=== PATIENT | female | born 1995 | race Caucasian/White ===

== ENCOUNTER 2016-08-25 23:15 | Emergency (ER) | payer SELFPAY ==
[~2016-08-25] VITALS: Ht 160 cm; Wt 57.0 kg
[2016-08-25 23:48] LABS: BASOPHILS % (AUTO) 0.3 % (0.0-2.0); EOSINOPHILS % (AUTO) 0.8 % (1.0-6.0); HEMATOCRIT 38.4 % (36-46); LYMPHOCYTES # (AUTO) 1.8 K/uL (1.0-4.8); LYMPHOCYTES % (AUTO) 21.8 % (22.0-44.0); MEAN CORPUSCULAR HEMOGLOBIN 30.6 pg (26.0-34.0); MEAN CORPUSCULAR HGB CONC 33.9 G/dL (31.0-37.0); MEAN CORPUSCULAR VOLUME 90 fL (80-100); MONOCYTES # (AUTO) 0.4 K/uL (0.1-1.0); MONOCYTES % (AUTO) 4.6 % (2.0-9.0); NEUTROPHILS # (AUTO) 5.9 K/uL (1.8-7.7); NEUTROPHILS % (AUTO) 72.5 % (40.0-70.0); PLATELET COUNT (AUTO) 257 K/uL (150-450); RED BLOOD CELL COUNT(AUTO) 4.26 MIL/uL (4.00-5.20); RED CELL DISTRIBUTION WIDTH 13.5 % (11.5-14.5); WHITE BLOOD COUNT (AUTO) 8.1 K/uL (4.5-11.0)
[2016-08-25 23:54] LABS: ANION GAP 8 mmol/L (8-16); CALCIUM, TOTAL 8.9 mg/dL (8.8-10.5); CARBON DIOXIDE 27 mmol/L (22-29); CHLORIDE 105 mmol/L (98-107); CREATININE 0.63 mg/dL (0.60-1.30); GLOMERULAR FILTR. RATE CALC > 60 mL/min (>60); POTASSIUM 3.4 mmol/L (3.5-5.1); SODIUM SERUM 140 mmol/L (136-145); UREA NITROGEN, BLOOD 6 mg/dL (7-18)
[2016-08-26] LABS: ALANINE AMINOTRANSFERASE 17 U/L (12-78); ALBUMIN 3.9 g/dL (3.4-5.0); ASPARTATE AMINOTRANSFERASE 9 U/L (15-37); BILIRUBIN,TOTAL 1.2 mg/dL (0.1-1.0); TOTAL PROTEIN, SERUM 6.6 g/dL (6.4-8.2)
[2016-08-26] MEDS: DONNATAL/LIDOCAINE/MAALOX 55 ML BOTTLE PO ONE (00:29)
[2016-08-26] MEDS: PANTOPRAZOLE SODIUM 40 MG DR TABLET PO ONE (00:30)
[2016-08-26] MEDS: POTASSIUM CHLORIDE 20 MEQ ER TABLET PO ONE (01:02)
[2016-08-26 01:03] VITALS: BP 120/63
[2016-08-26 01:42] LABS: APPEARANCE,URINE TURBID (CLEAR); GLUCOSE, URINE (UA) NEGATIVE (NEGATIVE); KETONES,URINE NEGATIVE (NEGATIVE); LEUKOCYTE ESTERASE ,URINE NEGATIVE (NEGATIVE); OCCULT BLOOD,URINE NEGATIVE (NEGATIVE); PROTEIN,URINE NEGATIVE (NEGATIVE)
[2016-08-26 01:46] LABS: ADD UA MICROSCOPIC YES
[2016-08-26 01:48] LABS: RBC,URINE 0-2 /HPF (0-2); WBC,URINE 0-2 /HPF (0-5)
[2016-08-26 01:49] LABS: SQUAMOUS EPITHELIAL CELL,UR Moderate /LPF (None Seen)
== END 2016-08-26 01:20 | disposition home or self-care (01) ==
LOC: EMS 23:16
DX: K29.70 Gastritis, unspecified, without bleeding (principal); K21.9 Gastro-esophageal reflux disease without esophagitis
CPT/HCPCS: 36415; 80053; 81001; 83690; 84703; 85025; 87077; 87086; 87186; 99284; Z7610

== ENCOUNTER 2021-09-23 12:51 | Emergency (ER) | payer OTHER ==
[~2021-09-23] VITALS: Ht 160 cm; Wt 70.9 kg
[2021-09-23 15:44] VITALS: BP 123/90
== END 2021-09-23 15:50 | disposition home or self-care (01) ==
LOC: EMS 12:51
DX: F41.9 Anxiety disorder, unspecified (principal); F12.90 Cannabis use, unspecified, uncomplicated; Z87.19 Personal history of other diseases of the digestive system
CPT/HCPCS: 99281; Z7502

== ENCOUNTER 2023-09-20 13:01 | Emergency (ER) | payer OTHER ==
[~2023-09-20] VITALS: Ht 160 cm; Wt 72.0 kg
[2023-09-20 13:10] VITALS: TEMP 98.2
[2023-09-20 13:30] LABS: BASOPHILS % (AUTO) 0.2 % (0.0-2.0); EOSINOPHILS % (AUTO) 0.4 % (1.0-6.0); HEMATOCRIT 40.6 % (36-46); HEMOGLOBIN 13.7 g/dL (12.0-16.0); LYMPHOCYTES % (AUTO) 20.4 % (22.0-44.0); MEAN CORPUSCULAR HEMOGLOBIN 30.4 pg (26.0-34.0); MEAN CORPUSCULAR HGB CONC 33.7 G/dL (31.0-37.0); MEAN CORPUSCULAR VOLUME 90 fL (80-100); MONOCYTES # (AUTO) 0.6 K/uL (0.1-1.0); MONOCYTES % (AUTO) 6.5 % (2.0-9.0); NEUTROPHILS # (AUTO) 7.1 K/uL (1.8-7.7); NEUTROPHILS % (AUTO) 72.5 % (40.0-70.0); PLATELET COUNT (AUTO) 343 K/uL (150-450); RED CELL DISTRIBUTION WIDTH 14.8 % (11.5-14.5); WHITE BLOOD COUNT (AUTO) 9.7 K/uL (4.5-11.0)
[2023-09-20 13:45] LABS: ANION GAP 15 mmol/L (8-16); CALCIUM, TOTAL 9.3 mg/dL (8.8-10.5); CARBON DIOXIDE 24 mmol/L (22-29); CHLORIDE 96 mmol/L (98-107); CREATININE 0.79 mg/dL (0.60-1.30); GLOMERULAR FILTR. RATE CALC > 60 mL/min (>60); GLUCOSE,RANDOM 100 mg/dL (70-110); SODIUM SERUM 134 mmol/L (136-145); UREA NITROGEN, BLOOD 11 mg/dL (7-18)
[2023-09-20 13:53] LABS: APPEARANCE,URINE HAZY (CLEAR); COLOR,URINE YELLOW (YELLOW); GLUCOSE, URINE (UA) NEGATIVE (NEGATIVE); KETONES,URINE =>150 mg/dL (NEGATIVE); LEUKOCYTE ESTERASE ,URINE NEGATIVE (NEGATIVE); NITRATE,URINE NEGATIVE (NEGATIVE); OCCULT BLOOD,URINE TRACE (NEGATIVE); PH,URINE 6.5 (5.0-8.0); PROTEIN,URINE 100-200,SEE CONFIRM mg/dL (NEGATIVE); SPECIFIC GRAVITIY, URINE 1.034 (1.003-1.030)
[2023-09-20 13:54] LABS: POTASSIUM 2.7 mmol/L (3.5-5.1)
[2023-09-20 13:55] LABS: BILIRUBIN,URINE SMALL (NEGATIVE)
[2023-09-20 14:02] LABS: BACTERIA,URINE None Seen /HPF (None Seen); RBC,URINE None Seen /HPF (0-2); SQUAMOUS EPITHELIAL CELL,UR Few /LPF (None Seen); SULFOSALICYLIC ACID,URINE 1+ (Negative); WBC,URINE 0-2 /HPF (0-5); YEAST,URINE None Seen /HPF (None Seen)
[2023-09-20 14:03] LABS: HCG,QUAL URINE NEGATIVE (NEGATIVE)
[2023-09-20] MEDS: ONDANSETRON HCL 4 MG/2 ML VIAL IVP ONE (15:57)
[2023-09-20] MEDS: KETOROLAC TROMETHAMINE 30 MG/ML VIAL IVP ONE (15:57)
[2023-09-20] MEDS: SODIUM CHLORIDE 0.9% 2,000 ML IV ONE (15:57)
[2023-09-20 16:15] VITALS: BP 138/79; PULSE 67; RESP 16
[2023-09-20] MEDS ORDERED: POTA8CAP20 PO (16:53)
[2023-09-20] MEDS ORDERED: ONDA-104 PO (16:53)
[2023-09-20] MEDS: POTASSIUM CHLORIDE 20 MEQ ER TABLET PO ONE (17:00)
== END 2023-09-20 17:19 | disposition home or self-care (01) ==
LOC: EMS 13:03
DX: E86.0 Dehydration (principal); E87.6 Hypokalemia; F41.9 Anxiety disorder, unspecified; R11.10 Vomiting, unspecified; F12.90 Cannabis use, unspecified, uncomplicated
CPT/HCPCS: 99284; 96374; 96361; 96375; 80048; 81001; 84703; 85025; 36415; J1885; J2405; J7030; 81002